=== PATIENT | female | born 1940 | race Caucasian/White ===

== ENCOUNTER 2022-02-17 15:58 | Emergency (ER) | payer BC, SELFPAY ==
[2022-02-17 16:17] VITALS: BP 140/64; PULSE 60; RESP 20; TEMP 36.5; O2SAT 97; BMI 32.9
--- NOTE | 2022-02-17 16:26 | DI.RAD.S_ITS ---
PROCEDURE: XR CHEST 1V INDICATIONS: chest pain TECHNIQUE: One view of the chest was acquired. COMPARISON: None. FINDINGS: Surgical changes and devices: None. Lungs and pleura: Lungs are clear. No pleural effusions or pneumothorax. Mediastinum: Mediastinal contours appear normal. Heart size is normal. Bones and chest wall: No suspicious bony lesions. Overlying soft tissues appear unremarkable. IMPRESSION: No acute cardiopulmonary disease. Dictated by: Bhavani Miranda M.D. on 02/17/2022 at 16:18 Approved by: Bhavani Miranda M.D. on 02/17/2022 at 16:19
--- NOTE | 2022-02-17 16:27 | ED_ITS ---
HPI - Chest Pain General Chief Complaint: Chest Pain Stated Complaint: Chest pain for couple days, worsening Time Seen by Provider: 02/17/22 16:13 Source: patient Mode of arrival: Family Vehicle Limitations: no limitations History of Present Illness HPI narrative: 82-year-old female nonsmoker without any significant medical history presents with chest pain for the past few days. She states that she had an odd chest sensation across her anterior chest that was present for the past 2-3 days. She does not remember what she was doing when it started but she states it was persistent for multiple days until later this morning and had completely resolved prior to her arrival. When present she denied any obvious provocation, palliation or radiation. She denied any associated symptoms such as dizziness, weakness, lightheadedness. She is had no fever or chills. She denies shortness of breath or cough. She denies recent travel, injury, history of clot or known cancer. She is not been fatigued. She denies any exertional fatigue or exercise intolerance. She denies any new medications or dietary change. She states that she had similar symptoms at some point in her past and had been evaluated at an outside facility without significant findings and was even referred to Cardiology Related Data Home Medications Medication Instructions Recorded Confirmed metronidazole 1 % topical cream 1 TP ##0 05/26/11 (Noritate) VITAMIN D (Vitamin D3) 2,000 PO QDAY ##0 10/16/16 calcium carbonate 260 mg calcium PO ##0 10/16/16 (648 mg) tablet cetirizine 10 mg tablet 10 mg PO QDAYP PRN ##0 10/16/16 chondroitin sulfate A 250 mg 250 mg PO QDAY ##0 10/16/16 capsule (Chondroitin Sulfate) diphenoxylate-atropine 2.5 1 tab PO PRN PRN ##0 10/16/16 mg-0.025 mg tablet glucosamine sulfate 500 mg capsule 500 mg PO QDAY ##0 10/16/16 (Genicin) guaifenesin 600 mg tablet, 600 mg PO Q12HP PRN ##0 10/16/16 extended release 12 hr (Mucinex) multivitamin (Multiple Vitamins 1 tab PO QDAY ##0 10/16/16 tablet) omega 2-mkr-rcf-fish oil 1,000 mg 1,000 mg PO QDAY ##0 10/16/16 (120 mg-180 mg) capsule (Fish Oil) zinc gluconate 50 mg tablet PO ##0 10/16/16 Allergies Allergy/AdvReac Type Severity Reaction Status Date / Time steroid nasal spray AdvReac Unknown ravenous Uncoded 02/17/22 16:16 appetite and 'something bad' Review of Systems Review of Systems Narrative: GENERAL: Denies chills, fatigue, malaise, fever, sweats. HEENT: Denies sinus pain, ear pain, sore throat, difficulty swallowing, dizziness. RESPIRATORY: Denies dyspnea, cough, wheezing, hemoptysis, sputum. CARDIOVASCULAR: See HPI GASTROINTESTINAL: Denies nausea, vomiting, abdominal pain, diarrhea, constipation, melena. : Denies dysuria, frequency, incontinence, hematuria, urinary retention. MUSCULOSKELETAL: denies weakness, joint pain, or bony pain SKIN: Denies rash, skin lesions, or other NEUROLOGIC: Denies weakness, headache, numbness, change in speech, confusion, seizures, incoordination. PSYCHIATRIC: No concerning psychosocial issues. 12 point review of systems is negative except for those stated above Patient History Social History Smoking Status: Never smoker Smoking Status: Never smoker alcohol intake frequency: holidays/special occasions only Substance Use Type: does not use Exam Narrative Exam Narrative: GENERAL: [82] year old patient appears stated age. Well-developed patient, in mild distress. HEAD: Atraumatic. Normocephalic. EYES: Pupils equal round and reactive. Extraocular motions intact. No scleral icterus. No injection or drainage. ENT: Nose without bleeding, purulent drainage. Throat without erythema, tonsillar hypertrophy or exudate. Airway patent. NECK: Trachea midline. Non tender CARDIOVASCULAR: Regular rate and rhythm without murmurs, gallops, or rubs. RESPIRATORY: Clear to auscultation. Breath sounds equal bilaterally. No wheezes, rales, or rhonchi. GASTROINTESTINAL: Abdomen soft, non-tender, nondistended. EXTREMITIES: No edema or joint tenderness. BACK: Nontender without deformity or crepitance. No flank tenderness. NEURO: AOx3. SKIN: No rash or erythema of visible areas Initial Vital Signs Initial Vital Signs: Vital Signs Temperature 97.7 F 02/17/22 16:17 Pulse Rate 60 02/17/22 16:17 Respiratory Rate 20 10/22/22 16:17 Blood Pressure 140/64 02/17/22 16:17 Pulse Oximetry 97 02/17/22 16:17 Oxygen Delivery Method 02/17/22 16:17 Scores HEART Score Heart Score history: Slightly Suspicious Heart Score EKG: Normal Heart Score Age: > or = 65 years old Heart Score risk factors: No known risk factors Heart Score troponin: < or = to normal limit Heart Score Total: 2 Course Orders Ordered: ED Orders 02/17/22 16:11 EKG-12 Lead Routine 02/17/22 16:26 XR chest 1V Stat 02/17/22 16:32 Complete Blood Count AUTO DIFF Stat Comprehensive Metabolic Panel Stat D Dimer Stat Lipase Stat Magnesium Stat Troponin & CK Cardiac Panel Stat Vital Signs Vital signs: Vital Signs - 8 hr 02/17/22 16:17 02/17/22 16:43 02/17/22 17:00 Temperature 97.7 F Pulse Rate 60 58 L 59 L Respiratory Rate 20 17 22 Blood Pressure 140/64 Pulse Oximetry 97 99 98 Oxygen Delivery Method Room Air 02/17/22 17:01 02/17/22 17:01 Temperature Pulse Rate 59 L Respiratory Rate 18 Blood Pressure 146/67 H Pulse Oximetry 99 Oxygen Delivery Method MDM - Chest Pain Lab Data Result diagrams: 02/17/22 16:32 02/17/22 16:32 Labs: Lab Results 02/17/22 02/17/22 02/17/22 Range/Units 16:32 16:32 16:32 WBC 10.0 (4.5-11.0) X10^3/uL RBC 4.12 (4.0-5.2) X10^6/uL Hgb 12.5 (12.0-16.0) g/dL Hct 37.2 (36-46) % MCV 90.3 (80-100) fL MCH 30.4 (26-34) PG MCHC 33.6 (30-36) % RDW 14.6 (11.6-14.8) % Plt Count 234 (150-400) X10^3/uL Neut % (Auto) 63.6 (50-75) % Lymph % (Auto) 23.4 L (25-40) % Branch % (Auto) 9.8 (3-14) % Eos % (Auto) 2.2 (2-4) % Baso % (Auto) 1.0 (0-2) % Neut # (Auto) 6300 (1569-7642) /uL Lymph # (Auto) 2300 (9361-7188) /uL Branch # (Auto) 1000 H (0-900) /uL Eos # (Auto) 200 (0-450) /uL Baso # (Auto) 100 (0-100) /uL D-Dimer 622 H (<500) ng/ml Sodium 141 (137-145) mmol/L Potassium 3.9 (3.4-5.1) mmol/L Chloride 105 (98-107) mmol/L Carbon Dioxide 27 (22-32) mmol/L BUN 17 (7-17) mg/dL Creatinine 1.08 H (0.52-1.04) mg/dL Estimated GFR 52 L (>60) mL/min BUN/Creatinine Ratio 15.7 (6-22) Glucose 131 H (80-110) mg/dL Calcium 9.0 (8.4-10.2) mg/dL Magnesium 1.9 (1.6-2.3) mg/dL Total Bilirubin 0.5 (0.2-1.3) mg/dL AST 31 (14-36) IU/L ALT 26 (<35) IU/L Alkaline Phosphatase 93 (38-126) U/L Total Creatine Kinase 141 H (30-135) U/L CK-MB (CK-2) 1.47 (<2.37) ng/mL CK-MB (CK-2) Rel Index 1.0 L (1.5-5.0) % Troponin I < 0.012 (0.01-0.034) ng/mL Total Protein 7.1 (6.3-8.2) g/dL Albumin 4.4 (3.5-5.0) g/dL Globulin 2.7 (1.7-4.1) g/dL Albumin/Globulin Ratio 1.6 (1.0-2.8) Lipase 276 (23-300) U/L Imaging Data Chest x-ray: Radiologist's Impression: Close Chest X-Ray (Signed) Bhavani Miranda - 02/17/[address] [address] XRay Report Signed Patient: Afshan Florentino MR#: [id number] : 1940 Acct:[id number] Age/Sex: 82 / F Date of Service: 02/17/22 Loc: ED Accession Number: [id number] ?? Procedure: XR chest 1V Ordering Provider: Mio Wood D.O. PROCEDURE:? XR CHEST 1V ? INDICATIONS:? chest pain ? TECHNIQUE:? One view of the chest was acquired.? ? COMPARISON:? None. ? FINDINGS:? ? Surgical changes and devices:? None.? ? Lungs and pleura:? Lungs are clear.? No pleural effusions or pneumothorax.? ? Mediastinum:? Mediastinal contours appear normal.? Heart size is normal.? ? Bones and chest wall:? No suspicious bony lesions.? Overlying soft tissues appear unremarkable.? ? IMPRESSION:? No acute cardiopulmonary disease.? ? ? Dictated by: Bhavani Miranda M.D. on 02/17/2022 at 16:18 ? ? Approved by: Bhavani Miranda M.D. on 02/17/2022 at 16:19 ? MDM Narrative Medical decision making narrative: Multiple causes of chest pain considered including TX, PE, pneumothorax, pneumonia, aortic dissection, and pleurisy. Patient reports no radiation, no diaphoresis, no provocation with exertion, and no vomiting Patient's symptoms improved over duration of stay with above-stated therapies. Findings and discharge diagnosis discussed with patient/family followed by verbalization of understanding Return precautions discussed with patient/family whom verbalize understanding. Discharge Plan Departure Patient Disposition: Home Clinical Impression: Atypical chest pain Instructions: DI for Atypical Chest Pain Activity Restrictions/Additional Instructions: *You have been diagnosed with [atypical chest pain. As we discussed your history and physical exam as well as labs, EKG and other are very reassuring] *What to do: *Please continue to take your regular medications as directed. [ ] New medication prescriptions sent to your pharmacy: [ ] [ ] New medication written as a paper prescription [x ] No new medications given *Please follow up with your primary care provider in 2-3 days, call for an appointment. Let them know you were seen in the Emergency Department and that we ask that you be seen in follow up. We will electronically transmit a record of today's note if your PCP is in our system *If you do not have a primary care provider please contact the [facility] Resource line at [phone]. They will ask some questions about your medical history and help get you set up with a doctor in the community. *Return to Emergency Department if you should have any new, worsening or concerning symptoms, such as [fever greater than 101 F, shaking chills, w orsening pain, persistent vomiting or other bothersome symptoms] Prescriptions: No Action metronidazole [Noritate] 1 % cream 1 TP Qty: 0 multivitamin [Multiple Vitamins] 1 EACH tablet 1 tab PO QDAY Qty: 0 omega 3-orb-gcg-fish oil [Fish Oil] 1,000 MG capsule 1,000 mg PO QDAY Qty: 0 VITAMIN D (Vitamin D3) 2,000 PO QDAY Qty: 0 zinc gluconate 50 mg tablet PO Qty: 0 calcium carbonate 260 mg calcium (648 mg) tablet PO Qty: 0 cetirizine 10 MG tablet 10 mg PO QDAYP PRNQty: 0 diphenoxylate-atropine 2.5 MG/0.025 MG tablet 1 tab PO PRN PRNQty: 0 guaifenesin [Mucinex] 600 MG tablet extended release 12hr 600 mg PO Q12HP PRNQty: 0 glucosamine sulfate [Genicin] 500 MG capsule 500 mg PO QDAY Qty: 0 chondroitin sulfate A [Chondroitin Sulfate] 250 MG capsule 250 mg PO QDAY Qty: 0 Referrals: Jaycee Pardo DO [Primary Care Provider] -
[2022-02-17 16:43] VITALS: PULSE 58; RESP 17; O2SAT 99
[2022-02-17 16:43] LABS: Add Manual Diff / Slide Review NO; Basophils Absolute Auto 100 /uL (0-100); Eosinophils Absolute Auto 200 /uL (0-450); Eosinophils Percent Auto 2.2 % (2-4); Hematocrit 37.2 % (36-46); Hemoglobin 12.5 g/dL (12.0-16.0); Lymphocytes Absolute Auto 2300 /uL (1100-4500); Lymphocytes Percent Auto 23.4 % (25-40); Mean Corpuscular HGB Conc 33.6 % (30-36); Mean Corpuscular Hemoglobin 30.4 PG (26-34); Mean Corpuscular Volume 90.3 fL (80-100); Monocytes Absolute Auto 1000 /uL (0-900); Monocytes Percent Auto 9.8 % (3-14); Neutrophils Absolute Auto 6300 /uL (1500-7000); Neutrophils Percent Auto 63.6 % (50-75); Platelet Count 234 X10^3/uL (150-400); Red Blood Cell Count 4.12 X10^6/uL (4.0-5.2); Red Cell Distribution Width 14.6 % (11.6-14.8)
[2022-02-17 16:50] LABS: D Dimer 622 ng/ml (<500)
[2022-02-17 16:52] LABS: Alanine Aminotransferase 26 IU/L (<35); Albumin 4.4 g/dL (3.5-5.0); Albumin Globulin Ratio 1.6 (1.0-2.8); Alkaline Phosphatase 93 U/L (38-126); Aspartate Aminotransferase 31 IU/L (14-36); BUN Creatinine Ratio 15.7 (6-22); Bilirubin Total 0.5 mg/dL (0.2-1.3); Blood Urea Nitrogen 17 mg/dL (7-17); Carbon Dioxide 27 mmol/L (22-32); Chloride 105 mmol/L (98-107); Creatine Kinase 141 U/L (30-135); Estimated Glomerular Filt Rate 52 mL/min (>60); Globulin 2.7 g/dL (1.7-4.1); Glucose 131 mg/dL (80-110); HEMOLYSIS < 15 (0-50); Lipase 276 U/L (23-300); Magnesium 1.9 mg/dL (1.6-2.3); Potassium 3.9 mmol/L (3.4-5.1); Sodium 141 mmol/L (137-145); Total Protein 7.1 g/dL (6.3-8.2)
[2022-02-17 17:00] VITALS: PULSE 59; RESP 22; O2SAT 98
[2022-02-17 17:01] VITALS: BP 146/67; PULSE 59; RESP 18; O2SAT 99
[2022-02-17 17:03] LABS: Troponin I < 0.012 ng/mL (0.01-0.034)
[2022-02-17 17:07] LABS: Creatine Kinase MB 1.47 ng/mL (<2.37)
[2022-02-17 17:30] VITALS: PULSE 62; RESP 11; O2SAT 98
[2022-02-17 17:31] VITALS: BP 154/70; PULSE 61; RESP 10; O2SAT 99
== END 2022-02-17 18:00 | disposition home or self-care (01) ==
PROVIDERS: Emergency Provider Emergency Medicine; Family Provider Family Medicine; PCP Family Medicine
DX: R07.89 Other chest pain (principal)
CPT/HCPCS: 71045; 80053; 82550; 82553; 83690; 83735; 84484; 85025; 85379; 93005; 93010; 99283; 99284